=== PATIENT | female | born 1975 | race Caucasian/White ===

== ENCOUNTER → 2019-04-06 | Outpatient (CLI) | payer MEDICAID ==
--- NOTE | 2019-04-06 12:39 | REP ---
Clinical: Dating and viability Comparison: None . Findings: Examination demonstrates a single live intrauterine in variable sixth presentation. motion is identified by technologist. Placenta is noted anterior and grade zero without evidence for placenta previa or abruption. Multiple venous lakes are identified. Amniotic fluid volume is normal. Cervix measures 3.9 cm in length and appears closed. No evidence for nuchal cord. Gestational age by LMP 17 weeks 3 days with TIFFANIE 09/11/2019 . Gestational age by current measurements 17 weeks 5 days with TIFFANIE 09/09/2019. FHR equals 128 beats per minute. Biometrical measurements correspond to 17 weeks 5 days gestational age estimated date of delivery 09/09/2019. Estimated weight 205 grams ( 57th percentile). Anatomical assessment demonstrates normal structures including cranium, choroid plexus, cavum, cerebellum/posterior fossa, diaphragm, stomach, cord insertion/three-vessel cord, kidneys/bladder, spine, and extremities. Limited evaluation of the facial features, lungs, heart/ventricular outflow tracts. Impression: Single live intrauterine with biometrical measurements at 17 weeks 5 days gestational age. No gross abnormalities. Anatomical assessment should be performed at 19-20 weeks. Electronically Signed by Carlos Hui MD 04/06/2019 11:27 A
== END ==
LOC: M RAD 10:22
PROVIDERS: ATTEND Nurse Practitioner Family
DX: Z32.01 Encounter for pregnancy test, result positive (principal); Z3A.17 17 weeks gestation of pregnancy